=== PATIENT | female | born 1990 | race Caucasian/White ===

== ENCOUNTER 2018-03-21 18:49 | Emergency (ER) | payer OTHER ==
[2018-03-21 19:00] VITALS: BP 121/88; PULSE 98; TEMP 99; BMI 30.7
--- NOTE | 2018-03-21 19:12 | PDOC ---
History of Present Illness - General History Source: Patient Exam Limitations: No Limitations - History of Present Illness Initial Comments: 03/21/18 20:04 The patient is a 27 year old female with no significant PMH who presents to the emergency department with left sided neck pain and stiffness since yesterday. The patient reports that she began to feel her left sided neck pain last night while she was in bed.She states that she does not has usual range of motion of her neck . The patient reports that she had associated chest pain with inspiration. The patient reports that she was recently seen by her GI doctor for epigastric complaint yesterday and she states that she has a follow up appointment tomorrow. The patient reports a fever or 100.4 yesterday and an episode of diarrhea 6 hours ago. The patient denies any shortness of breath, headache, or dizziness. She denies any fever, chills, nausea, vomit, or constipation. The patient denies any urinary symptoms. The patient denies any other complaints. PAST MEDICAL HISTORY: no significant history PAST SURGICAL HISTORY: no significant history FAMILY HISTORY: no pertinent history SOCIAL HISTORY: Pt lives with family and is employed. MEDICATIONS: reviewed ALLERGIES: As per nursing notes General: No fevers or chills, no weakness, no weight loss HEENT: (+)left sided neck pain and stiffness, No change in vision. No sore throat,. No ear pain CardioVascular: (+)chest pain. No shortness of breath Respiratory:No cough, or wheezing. Gastrointestinal: (+)diarrhea. No nausea, vomiting, or constipation, No rectal bleeding Genitourinary: No dysuria, hematuria, or frequency Musculoskeletal: No joint or muscle pain or swelling Neurologic: No headache, vertigo, dizziness or loss of consciousness Psychiatric: nor depression Skin: No rashes or easy bruising Endocrine: no increased thirst or abnormal weight change Allergic: no skin or latex allergy All other systems reviewed and normal General: Well-nourished well-developed individual, no acute distress HEENT: Throat: Normal, tonsils normal, no erythema or exudate Neck:(+) tenderness to palpation in lateral muscles of neck and upper shoulder. Supple, no meningeal signs, no lymphadenopathy Eyes::Pupils equal reactive and round, extraocular motion intact Chest: Nontender to palpation Cardiac: S1-S2 normal, regular rate and rhythm, no murmurs rubs or gallops Respiratory: Lungs clear to auscultation bilateral Abdomen: Soft, nondistended, normal bowel sounds, nontender to palpation diffusely Extremities: Warm, dry, no cyanosis, clubbing, or edema Skin: No rashes Neuro: Alert and oriented x3, nonfocal exam, grossly intact, normal gait Psych: Normal mood and affect <Yahaira Frias - Last Filed: 03/21/18 20:15> - General History Source: Patient Exam Limitations: No Limitations - History of Present Illness Initial Comments: 03/21/18 19:27 A portion of this note was documented by scribe services under my direction. I have reviewed the details of the note, within reason, and agree with the documentation. The case summary and management plan written by me. Assessment and plan: This is 27-year-old female who comes in complaining of neck stiffness. Patient is also complaining of some GI complaints. Patient saw her primary care doctor yesterday for the GI complaints had a complete workup including blood work stool cultures and stool for ova and parasites and evaluation. Patient has appointment tomorrow morning to go back to her doctors to get the results. Patient is had 2 episodes of diarrhea today the last one approximately 6 hours ago. In addition to that patient said she did have a fever yesterday but no fever today. Patient's temperature is 99.0. In the emergency room. Patient will be treated for her neck stiffness with Toradol and Valium We'll reassess and reevaluate after the Toradol and Valium without a chance to work Will not further pursue the GI issues as they appear to be getting better and patient has had a complete workup with her primary care doctor in an appointment tomorrow morning. 03/21/18 20:42 Reevaluation patient feels better. Neck is improved. Patient discharged home will follow-up with her doctor tomorrow for the results of her GI workup <Juan Manuel Rhodes I - Last Filed: 03/21/18 20:42> - General Chief Complaint: Pain Stated Complaint: LEFT SIDE OF NECK PAIN AND STIFFNESS Time Seen by Provider: 03/21/18 19:12 Past History <Yahaira Frias - Last Filed: 03/21/18 20:15> - Past Medical History COPD: No Other medical history: DENIES - Suicide/Smoking/Psychosocial Hx Smoking History: Never smoked Information on smoking cessation initiated: No Hx Alcohol Use: No Drug/Substance Use Hx: No Substance Use Type: None <Juan Manuel Rhodes I - Last Filed: 03/21/18 20:42> - Past Medical History Allergies/Adverse Reactions: Allergies Allergy/AdvReac Type Severity Reaction Status Date / Time No Known Allergies Allergy Unverified 03/21/18 18:51 Home Medications: Ambulatory Orders Cyclobenzaprine HCl [Flexeril -] 10 mg PO TID #21 tablet 03/21/18 *Physical Exam - Vital Signs Last Vital Signs Temp Pulse Resp BP Pulse Ox 99 F 98 H 16 121/88 100 03/21/18 18:51 03/21/18 18:51 03/21/18 18:51 03/21/18 18:51 03/21/18 18:51 <Yahaira Frias - Last Filed: 03/21/18 20:15> - Vital Signs Last Vital Signs Temp Pulse Resp BP Pulse Ox 99 F 98 H 16 121/88 100 03/21/18 18:51 03/21/18 18:51 03/21/18 18:51 03/21/18 18:51 03/21/18 18:51 <Juan Manuel Rhodes I - Last Filed: 03/21/18 20:42> ED Treatment Course - Medications Given in the ED: ED Medications Discontinued Medications Generic Name Dose Route Start Last Admin Trade Name Freq PRN Reason Stop Dose Admin Diazepam 5 mg 03/21/18 19:26 03/21/18 19:36 Valium - PO 03/21/18 19:27 5 mg ONCE ONE Administration Ketorolac Tromethamine 60 mg 03/21/18 19:26 03/21/18 19:35 Toradol Injection - IM 03/21/18 19:27 60 mg ONCE ONE Administration <Yahaira Frias - Last Filed: 03/21/18 20:15> *DC/Admit/Observation/Transfer - Attestations Scribe Attestion: 03/21/18 20:04 Documentation prepared by Yahaira Frias, acting as medical billing manager for Juan Manuel Rhodes MD. <Yahaira Frias - Last Filed: 03/21/18 20:15> - Discharge Dispostion Admit: No <Juan Manuel Rhodes I - Last Filed: 03/21/18 20:42> Diagnosis at time of Disposition: Torticollis, acute - Discharge Dispostion Disposition: HOME Condition at time of disposition: Stable - Prescriptions Prescriptions: Cyclobenzaprine HCl [Flexeril -] 10 mg PO TID #21 tablet - Patient Instructions Additional Instructions: For pain you can take ibuprofen 3 tablets 3 times a day with food don't take on an empty stomach take as needed for pain in your neck. For the spasm take Flexeril one tablet as often as 3 times a day as needed. Keep your appointment with your primary care doctor in the morning regarding your stomach discomfort. Return to the emergency department immediately with ANY new, persistent or worsening symptoms. Continue any medications as previously prescribed by your physician. You should follow up with your primary doctor as soon as possible regarding today's emergency department visit. . Please make sure your doctor reviews the results of your emergency evaluation. Thank you for coming to the Emergency Department today for your care. It was a pleasure to see you today. Please note that your evaluation is INCOMPLETE until you follow-up with your doctor.
[2018-03-21] MEDS ORDERED: KETOROLAC TROMETHAMINE 60 MG/2 ML VIAL IM ONE (19:26)
[2018-03-21] MEDS ORDERED: diazePAM 5 MG TABLET PO ONE (19:26)
[2018-03-21] MEDS ORDERED: diazePAM 5 MG TABLET ONE (19:29)
[2018-03-21] MEDS ORDERED: KETOROLAC TROMETHAMINE 60 MG/2 ML VIAL ONE (19:29)
== END 2018-03-21 20:18 | disposition home or self-care (01) ==
LOC: FER 18:49
PROC: 3E0233Z Introduction of Anti-inflammatory into Muscle, Percutaneous Approach (ICD-10-PCS; principal; 2018-03-21)
DX: M43.6 Torticollis (principal)
CPT/HCPCS: 96372; 99282-25